=== PATIENT | male | born 1940 ===

== ENCOUNTER 2018-08-16 09:10 | Outpatient (CLI) | payer MEDICARE | END 2018-08-16 09:11 | disposition home or self-care (01) | LOC: C.LAB 09:10 | DX: R80.9 Proteinuria, unspecified (principal) ==

== ENCOUNTER 2018-08-18 08:50 | Outpatient (CLI) | payer MEDICARE | END 2018-08-18 08:51 | disposition home or self-care (01) | LOC: C.LAB 08:50 | DX: R80.9 Proteinuria, unspecified (principal) ==

== ENCOUNTER 2018-08-19 11:35 | Outpatient (CLI) | payer MEDICARE | END 2018-08-19 11:36 | disposition home or self-care (01) | LOC: C.USIC 11:35 | DX: N18.3 Chronic kidney disease, stage 3 (moderate) (principal) ==